=== PATIENT | female | born 1940 | race African-American/Black ===

== ENCOUNTER 2018-05-09 08:38 | Inpatient (IN) | payer OTHER ==
--- NOTE | 2018-05-09 09:19 | PDOC ---
History of Present Illness - General Chief Complaint: Shortness of Breath Stated Complaint: Shortness of Breath Time Seen by Provider: 05/09/18 09:00 History Source: Patient Exam Limitations: No Limitations - History of Present Illness Initial Comments: 05/09/18 09:15 Pt is a 78yo f with PMH of HTN BIBA from ED with complaints of SOB and wheezing that started this AM. Pt stated that she woke up this morning, went to the restroom. When she went to go lie back down when she had a sudden onset of wheezing and SOB. She never had this problem before. Pt states she had a few episodes of coughing up yellow phlegm when EMS arrived. Per EMS, BP was elevated and pt received 3 SL nitro and was placed on BiPAP. Pt denies chest pain, neck pain, back pain, headache, changes in vision, abdominal pain, n/v/d. Denies history of copd/asthma and PR. PCP: Beau PMH: HTN PSH: Meds: losartan Social: denies Allergies: nkda Past History - Past Medical History Allergies/Adverse Reactions: Allergies Allergy/AdvReac Type Severity Reaction Status Date / Time No Known Drug Allergies Allergy Verified 05/09/18 09:05 Home Medications: Ambulatory Orders Valsartan/Hydrochlorothiazide [Valsartan-Hctz 320-12.5 mg Tab] 1 each PO DAILY 02/12/15 Losartan Potassium 100 mg PO DAILY 05/09/18 Anemia: No Asthma: No Cancer: No Cardiac Disorders: No CVA: No COPD: No CHF: No Dementia: No Diabetes: No GI Disorders: No HTN: Yes Hypercholesterolemia: No Liver Disease: No Seizures: No Thyroid Disease: No - Surgical History Abdominal Surgery: Yes Appendectomy: No Cardiac Surgery: No Cholecystectomy: No Lung Surgery: No Neurologic Surgery: No Orthopedic Surgery: No - Suicide/Smoking/Psychosocial Hx Smoking History: Never smoked Have you smoked in the past 12 months: No Information on smoking cessation initiated: No Hx Alcohol Use: No Drug/Substance Use Hx: No Substance Use Type: None Review of Systems - Review of Systems Constitutional: No: Chills, Fever HEENTM: No: Recent change in vision, Double Vision Respiratory: Yes: Shortness of Breath, Wheezing, Productive cough. No: Orthopnea, Hemoptysis Cardiac (ROS): No: Chest Pain, Lightheadedness, Palpitations ABD/GI: No: Constipated, Diarrhea, Nausea, Rectal Bleeding, Vomiting, Abdominal cramping : No: Burning, Dysuria Musculoskeletal: No: Back Pain, Joint Pain, Muscle Pain, Neck Pain Neurological: No: Headache, Numbness, Tingling, Tremors *Physical Exam - Vital Signs Last Vital Signs Temp Pulse Resp BP Pulse Ox 97.4 F L 95 H 16 150/73 88 L 05/09/18 08:41 05/09/18 08:41 05/09/18 08:41 05/09/18 08:41 05/09/18 08:41 - Physical Exam General Appearance: Yes: Nourished, Appropriately Dressed, Mild Distress HEENT: positive: EOMI, HENNY, Pharynx Normal Neck: positive: Trachea midline, Supple. negative: Lymphadenopathy (R), Lymphadenopathy (L) Respiratory/Chest: positive: Wheezing. negative: Rapid RR Cardiovascular: positive: Regular Rhythm, Regular Rate, S1, S2. negative: Edema , JVD, Murmur Vascular Pulses: Carotid (R): 2+, Carotid (L): 2+, Dorsalis-Pedis (R): 2+, Doralis-Pedis (L): 2+ Gastrointestinal/Abdominal: positive: Normal Bowel Sounds, Soft. negative: Distended, Guarding, Rebound, Tenderness Musculoskeletal: negative: CVA Tenderness Extremity: positive: Normal Capillary Refill, Pedal Edema. negative: Swelling, Calf Tenderness Integumentary: positive: Normal Color, Dry, Warm Neurologic: positive: regional cra II-XII NML intact, Fully Oriented, Alert, Normal Mood/ Affect, Normal Response, Motor Strength /5 ED Treatment Course - LABORATORY CBC & Chemistry Diagram: 05/09/18 09:58 05/09/18 09:58 Medical Decision Making - Medical Decision Making 05/09/18 09:44 Pt is a 78yo f with PMH of HTN BIBA from ED with complaints of SOB and wheezing that started this AM. Per EMS, pt was hypertensive in 200s/100s. was given SL nitro x3 and placed on BiPAP. BP reduced to 170s/90s Vitals: hypoxia 88%. otherwise wnl PE: bilateral wheezing, no edema. DDx: CHF, PE, PNA, COPD/asthma Low suspicion for COPD/asthma given lack of history and lack of smoking. CHF and PE higher on differential. Ordered cbc, cmp, trop, vbg, coags, bnp, ekg, cxr. If normal, will order CTA ( pt admitted to bus ride to [place] in the summer). EKG: nsr, no DORITA or depressions, flattened T wave in aVL, no inversions. 05/09/18 10:48 CBC wnl. VBG shows elevated PCO2. poss COPD? Waiting for chemistries and cxr 05/09/18 11:03 chemistry: wnl Trop: elevated at .24 BNP elevated in 800s. poss chf? Started pt on Lasix 40mg CXR: edema? awaiting for read. pt feeling better. Labs showed elevated troponin and BNP. Will start admission process for chf. 05/09/18 12:41 Repeat bp 160/74, RR 18-24 saturating in mid 90s. Will place pt on BiPAP. Pt admitted to Dr. Brantley *DC/Admit/Observation/Transfer Diagnosis at time of Disposition: Hypoxemia CHF (congestive heart failure) Qualifiers: Heart failure type: unspecified Heart failure chronicity: acute Qualified Code( s): I50.9 - Heart failure, unspecified - Discharge Dispostion Condition at time of disposition: Stable Decision to Admit order: Yes - Referrals - Patient Instructions - Post Discharge Activity
[2018-05-09] MEDS ORDERED: ALBUTEROL SO4 2.5/IPRATROPIUM 0.5 INH SOL 3 ML VIAL.NEB. NEB ONE ×2 (09:29→10:17)
[2018-05-09] MEDS ORDERED: methylPREDNISolone NA SUCC 125 MG/2 ML VIAL IVPB ONE (09:29)
--- NOTE | 2018-05-09 10:12 | PDOC ---
Attending Attestation - Resident Resident Name: Sa Lexiira - ED Attending Attestation I have performed the following: I have examined & evaluated the patient, The case was reviewed & discussed with the resident, I agree w/resident's findings & plan, Exceptions are as noted - HPI HPI: 05/09/18 10:01 78 F with h/o HTN presents to ED with SOB. Pt states that her symptoms began yesterday while in [place]. She is a activities therapist and states that she felt something "in the back of her lungs" but denies any coughing or SOB at that time. Today, pt suddenly felt very SOB with chest tightness and wheezing. Denies h/o asthma/COPD. Not a smoker. Pt denies any leg swelling or pain but states that she took a bus to [place] a few months ago. En route to ED, pt was noted to have SBP 200s. Pt was given sublingual nitro and placed on Bipap, which she states helped significantly. - Physicial Exam PE: 05/09/18 10:12 "GENERAL: Awake, alert, and fully oriented, in no acute distress. HEAD: No signs of trauma EYES: PERRLA, EOMI, sclera anicteric, conjunctiva clear ENT: Auricles normal inspection, hearing grossly normal, nares patent, oropharynx clear without exudates. Moist mucosa NECK: Nontender, no stepoffs, Normal ROM, supple, no lymphadenopathy, JVD, or masses LUNGS: + expiratory wheezes HEART: Regular rate and rhythm, normal S1 and S2, no murmurs, rubs or gallops ABDOMEN: Soft, nontender, normoactive bowel sounds. No guarding, no rebound. No masses EXTREMITIES: Normal range of motion, no edema. No clubbing or cyanosis. No cords, erythema, or tenderness NEUROLOGICAL: Cranial nerves II through XII intact. 5/5 strength and sensation in all extremities, Normal speech, normal gait, normal cerebellar function SKIN: Warm, Dry, normal turgor, no rashes or lesions noted. - Critical Care Time Total Critical Care Time: 60 Critical Care Statement: The care of this patient involved high complexity decision making to prevent further life threatening deterioration of the patient 's condition and/or to evaluate & treat vital organ system(s) failure or risk of failure. - Medical Decision Making 05/09/18 10:13 78 F with SOB and hypoxia. Exam notable for wheezing, suggestive of reactive airway process. However, pt with no h/o asthma or COPD. Possible cardiac wheeze. Pt was hypertensive en route, so new onset CHF is possibility. Also consider PE, as pt took a long bus ride about 3 months ago. - labs, trop, BNP - CXR - Nebs, steroids - Consider CTPE 05/09/18 12:36 CXR wth pulmonary edema BNP elevated, trop 0.2 Likely new CHF Lasix given Pt admitted
[2018-05-09 10:14] LABS: VENOUS PC02 62.3 mmHg (38-52); VENOUS PH 7.28 (7.32-7.42); VENOUS PO2 22.8 mmHg (28-48)
[2018-05-09 10:15] LABS: BASO % 0.6 % (0-2.0); EOS % 0.8 % (0-4.5); HEMATOCRIT 34.2 % (32.4-45.2); HEMOGLOBIN 11.1 GM/dL (10.7-15.3); LYMPH % 22.3 % (8-40); MCH 28.4 pg (25.7-33.7); MCHC 32.6 g/dl (32.0-36.0); MEAN CELL VOLUME 87.2 fl (80-96); MEAN PLT VOLUME 9.6 fl (7.5-11.1); NEUT % 70.3 % (42.8-82.8); PLATELET COUNT 181 K/MM3 (134-434); RBC 3.92 M/mm3 (3.60-5.2); RDW 14.4 % (11.6-15.6); WHITE BLOOD COUNT 5.2 K/mm3 (4.0-10.0)
[2018-05-09] MEDS ORDERED: methylPREDNISolone NA SUCC 40 MG/1 ML VIAL ONE (10:16)
[2018-05-09 10:29] LABS: PROTHROMBIN TIME (PATIENT) 11.8 SEC (9.7-13.0)
[2018-05-09 10:31] LABS: ACTIVATED PTT 29.4 SECONDS (25.2-36.5)
[2018-05-09 10:50] LABS: ALBUMIN 3.6 g/dl (3.4-5.0); ALK PHOS 123 U/L (45-117); ANION GAP 7 MMOL/L (8-16); BILIRUBIN,TOTAL 0.4 mg/dL (0.2-1); BLOOD UREA NITROGEN 20 mg/dL (7-18); CALCIUM 8.5 mg/dL (8.5-10.1); CHLORIDE 105 mmol/L (98-107); CO2 25 mmol/L (21-32); CREATININE 0.8 mg/dL (0.55-1.3); GLUCOSE,RANDOM 142 mg/dL (74-106); MAGNESIUM 1.7 mg/dL (1.8-2.4); N-TERMINAL BNP 821.4 pg/ml (5-450); PHOSPHOROUS 3.6 mg/dL (2.5-4.9); POTASSIUM 3.9 mmol/L (3.5-5.1); SGOT/AST 49 U/L (15-37); SGPT/ALT 92 U/L (13-61); SODIUM 137 mmol/L (136-145); TOT PROT 7.6 g/dl (6.4-8.2)
[2018-05-09] MEDS ORDERED: FUROSEMIDE 40 MG/4 ML INJECTABLE VIAL IVPUSH ONE ×2 (10:54→14:24)
[2018-05-09] MEDS ORDERED: FUROSEMIDE 40 MG/4 ML INJECTABLE VIAL ONE ×2 (11:12→14:34)
--- NOTE | 2018-05-09 14:52 | CON.CARD ---
Consult Consult Specialty:: Cardiology Referred by:: Emergency Medicine Reason for Consultation:: Dyspnea - History of Present Illness Chief Complaint: Dyspnea History of Present Illness: 8 F with h/o HTN presents to ED with SOB, chest tightness, orthopnea and wheezing, noted to have SBP 200s. Pt was given sublingual nitro, diureticss and placed on Bipap, with improvement in symptoms. She denies palpitations, near or true syncope, PND or LE edema. - History Source History Provided By: Patient Limitations to Obtaining History: No Limitations - Past Medical History Cardio/Vascular: Yes: HTN - Alcohol/Substance Use Hx Alcohol Use: No - Smoking History Smoking history: Never smoked Have you smoked in the past 12 months: No Home Medications - Allergies Allergies/Adverse Reactions: Allergies Allergy/AdvReac Type Severity Reaction Status Date / Time No Known Drug Allergies Allergy Verified 05/09/18 09:05 - Home Medications Home Medications: Ambulatory Orders Valsartan/Hydrochlorothiazide [Valsartan-Hctz 320-12.5 mg Tab] 1 each PO DAILY 02/12/15 Losartan Potassium 100 mg PO DAILY 05/09/18 Family Disease History - Family Disease History Family History: Denies Vital Signs: Vital Signs Temperature 97.4 F L 05/09/18 08:41 Pulse Rate 66 05/09/18 14:30 Respiratory Rate 20 05/09/18 14:30 Blood Pressure 152/60 05/09/18 14:30 O2 Sat by Pulse Oximetry (%) 100 05/09/18 13:49 Constitutional: Yes: No Distress, Calm Neck: Yes: Supple Respiratory: Yes: Regular, Diminished, On Nasal O2 Gastrointestinal: Yes: Normal Bowel Sounds, Soft, Abdomen, Obese Cardiovascular: Yes: Regular Rate and Rhythm JVD: No Carotid Bruit: No Heart Sounds: Yes: S1, S2 Murmur: Yes: Systolic Murmur, Grade 1 Edema: Yes Edema: LLE: Trace, RLE: Trace - Other Data Labs, Other Data: CBC, BMP 05/09/18 09:58 05/09/18 09:58 INR, PTT INR 1.00 (0.83-1.09) 05/09/18 09:58 Troponin, BNP 05/09/18 09:58 Troponin I 0.24 H B-Natriuretic Peptide 821.4 H Troponin, BNP 05/09/18 09:58 Troponin I 0.24 H B-Natriuretic Peptide 821.4 H NSR @ [address]-T changes Ejection Fraction %: LVEF > or = 40 % Imaging - Results Chest X-ray: Report Reviewed (CHF, trace effusions) Cat Scan: Image Reviewed Problem List - Problems (1) Hypertensive hypertrophic cardiomyopathy, with heart failure Code(s): I11.0 - HYPERTENSIVE HEART DISEASE WITH HEART FAILURE; I42.2 - OTHER HYPERTROPHIC CARDIOMYOPATHY (2) CHF (congestive heart failure) Code(s): I50.9 - HEART FAILURE, UNSPECIFIED Qualifiers: Heart failure type: unspecified Heart failure chronicity: acute Qualified Code(s): I50.9 - Heart failure, unspecified (3) Acute on chronic respiratory failure with hypoxia and hypercapnia Code(s): J96.21 - ACUTE AND CHRONIC RESPIRATORY FAILURE WITH HYPOXIA; J96.22 - ACUTE AND CHRONIC RESPIRATORY FAILURE WITH HYPERCAPNIA (4) Subendocardial ischemia Code(s): I24.8 - OTHER FORMS OF ACUTE ISCHEMIC HEART DISEASE Assessment/Plan 1. Acute hypercapneic and hypoxemic respiratory failure 2. Acute on chronic diastolic heart failure 3. Hypertensive emergency 4. Subendocardial ischemia 5. Abnl LFTs suspect hepatic congestion P:1. IV diuresis with monitor diuretic response, renal function and electrolytes , replete Mg 2. Continue Diovan 329 qd, add carvedilol 6.25 bid, check TSH, lipid panel, Ha1c , trend LFTs 3. Echo to assess ventricular and valve fxn, f/u chest ct and abd U/S 4. Wean bipap and O2 as needed, DVT prophylaxis 5. Pharmacologic stress testing to r/o ischemia as outpatient once euvolemic 6. Thank you for consultative opportunity
[2018-05-09] MEDS ORDERED: MAGNESIUM OXIDE 400 MG TABLET (FP) PO ONE (14:58)
--- NOTE | 2018-05-09 15:32 | HP ---
CHIEF COMPLAINT: SOB PCP: Dr. Yanez HISTORY OF PRESENT ILLNESS: 78 y/o F with PMHx of HTN was BIBEMS for SOB. Part of the hx was provided by her son Efren at the bedside. For the past few days, the patients home heating system has not been functioning and her apartment has been very cold. Patient this morning woke up after feeling some wheezing, coughing and tightness in her throat. She ambulated to the restroom and afterwards still did not feel herself. She then tried rum in tea to help with her breathing which she did not tolerate and vomited. She continued to feel short of breath at which point EMS was called. This is the first time she has experienced an episode like this. She denies having decreased exercise tolerance, Increasing the amount of pillows used nightly. Patient has had the cough for a few days productive of green/yellow sputum. As per ED Notes, patients BP was elevated (~200s/100s) and she received 3 sublingual nitro's and on arrival in the ED, was placed on BiPAP. Additionally denies any hx of long travel, smoking hx or asthma hx. Denies any recent fevers, chills, chest pain, nausea, vomiting, diarrhea, constipation. ER course was notable for: (1) Solumederol, Lasix, Albuterol (2) (3) Recent Travel: Denies PAST MEDICAL HISTORY: HTN PAST SURGICAL HISTORY: Denies Social History: Smoking: Denies Alcohol: Occasional Drugs: Denies Family History: Allergies No Known Drug Allergies Allergy (Verified 05/09/18 09:05) HOME MEDICATIONS: Home Medications Medication Instructions Recorded Valsartan/Hydrochlorothiazide 1 each PO DAILY 02/12/15 [Valsartan-Hctz 320-12.5 mg Tab] REVIEW OF SYSTEMS As per HPI PHYSICAL EXAMINATION Vital Signs - 24 hr 05/09/18 05/09/18 05/09/18 08:41 11:35 12:57 Temperature 97.4 F L Pulse Rate 95 H 66 Pulse Rate [ 64 Apical] Respiratory 16 20 Rate Blood Pressure 150/73 Blood Pressure 176/61 H [Right Arm] O2 Sat by Pulse 88 L 99 100 Oximetry (%) 05/09/18 05/09/18 13:49 14:30 Temperature Pulse Rate Pulse Rate [ 66 Apical] Respiratory 20 Rate Blood Pressure Blood Pressure 152/60 [Right Arm] O2 Sat by Pulse 100 Oximetry (%) GENERAL: A&Ox3, NAD, lying with head of bed elevated, speaking in full sentences HEAD: NCAT EYES: PERRLA, EOMI EARS, NOSE, THROAT: Oropharynx clear without exudates. Moist mucous membranes. NECK: +JVD LUNGS: Bilateral decreased breath sounds, Right sided crackles at the bases, Currently on BIPAP HEART: Regular rate and rhythm, normal S1 and S2 without murmur ABDOMEN: Soft, nontender, not distended, + bowel sounds, no guarding MUSCULOSKELETAL: No CVA tenderness. EXTREMITIES: 2+ pulses, No calf tenderness. 1+ pitting edema. NEUROLOGICAL: Cranial nerves II-XII intact. Normal speech. C5-T1 and L4-S1 Gross sensation intact. 5/5 muscle strength to Hand special education secretary, Elbow flexion/ extension, Shoulder abduction, Hip flexion, Plantarflexion, Dorsiflexion. SKIN: Warm, dry, no rashes or lesions noted, normal capillary refill. Laboratory Results - last 24 hr 05/09/18 05/09/18 05/09/18 09:58 09:58 09:58 WBC 5.2 RBC 3.92 Hgb 11.1 Hct 34.2 MCV 87.2 MCH 28.4 MCHC 32.6 RDW 14.4 Plt Count 181 MPV 9.6 Absolute Neuts (auto) 3.7 Neutrophils % 70.3 D Lymphocytes % 22.3 D Monocytes % 6.0 Eosinophils % 0.8 Basophils % 0.6 Nucleated RBC % 0 PT with INR 11.80 INR 1.00 PTT (Actin FS) 29.4 VBG pH POC VBG pCO2 POC VBG pO2 Mixed VBG HCO3 Sodium 137 Potassium 3.9 Chloride 105 Carbon Dioxide 25 Anion Gap 7 L BUN 20 H Creatinine 0.8 Creat Clearance w eGFR > 60 Random Glucose 142 H Calcium 8.5 Phosphorus 3.6 Magnesium 1.7 L Total Bilirubin 0.4 AST 49 H ALT 92 H Alkaline Phosphatase 123 H Troponin I 0.24 H B-Natriuretic Peptide 821.4 H Total Protein 7.6 Albumin 3.6 Urine Color Urine Appearance Urine pH Ur Specific [place] Urine Protein Urine Glucose (UA) Urine Ketones Urine Blood Urine Nitrite Urine Bilirubin Urine Urobilinogen Ur Leukocyte Esterase 05/09/18 05/09/18 09:58 11:01 WBC RBC Hgb Hct MCV MCH MCHC RDW Plt Count MPV Absolute Neuts (auto) Neutrophils % Lymphocytes % Monocytes % Eosinophils % Basophils % Nucleated RBC % PT with INR INR PTT (Actin FS) VBG pH 7.28 L POC VBG pCO2 62.3 H* POC VBG pO2 22.8 L Mixed VBG HCO3 28.0 H Sodium Potassium Chloride Carbon Dioxide Anion Gap BUN Creatinine Creat Clearance w eGFR Random Glucose Calcium Phosphorus Magnesium Total Bilirubin AST ALT Alkaline Phosphatase Troponin I B-Natriuretic Peptide Total Protein Albumin Urine Color Cancelled Urine Appearance Cancelled Urine pH Cancelled Ur Specific [place] Cancelled Urine Protein Cancelled Urine Glucose (UA) Cancelled Urine Ketones Cancelled Urine Blood Cancelled Urine Nitrite Cancelled Urine Bilirubin Cancelled Urine Urobilinogen Cancelled Ur Leukocyte Esterase Cancelled IMAGING: -CXR: No evidence of widening of the superior mediastinum. The heart is borderline enlarged. No pneumothorax is seen. Increased lung markings are noted in the region of the right cardiophrenic angle without effacement of heart border or diaphragm. Infectious process cannot be entirely excluded. Questionable right pleural effusion. ASSESSMENT/PLAN: 78 y/o F with PMHx of HTN was BIBEMS for SOB and will be admitted to tele. 1. SOB -Likely due to Acute CHF exacerbation VS PNA -JVD+, 1+ Pitting Edema, Right sided crackles, BNP 821.4 -IV Lasix 40 BID -Cardiology (Dr. Gray) consulted, Appreciate Rec's -CT Chest without contrast -Echo ordered -Repeat ABG Stat -Legionella/Strep Urine Antigen -Flu Swab -No indication for ABx at this time -Daily weights, Strict I&Os -Continue BIPAP 2. Hypertensive Urgency -Cardiology (Dr. Gray) consulted, Appreciate Rec's -Will Check TSH -Continue Coreg, Lasix BID, Valsartan -Can consider Nitrates if HTN persists 3. Troponemia -Likely due to demand ischemia -Will follow up with repeat Trops -Serial EKG 4. Transaminitis -Likely due to congestion -Will Check Hepatitis panel, Hepatic function panel, PT/INR 5. HypoMagnesemia -Repleted -Will continue to monitor 6. FEN -PO Fluids -Monitor for Hypomag -Sodium Controlled Diet 7. PPx -DVT: Lovenox daily Dispo: Tele-Inpatient Visit type - Emergency Visit Emergency Visit: Yes ED Registration Date: 05/09/18 Care time: The patient presented to the Emergency Department on the above date and was hospitalized for further evaluation of their emergent condition. - New Patient This patient is new to me today: Yes Date on this admission: 05/09/18 - Critical Care Critical Care patient: No
--- NOTE | 2018-05-09 15:58 | PN ---
Teaching Attending Note Name of Resident: Margarette Reyes ATTENDING PHYSICIAN STATEMENT I saw and evaluated the patient. I reviewed the resident's note and discussed the case with the resident. I agree with the resident's findings and plan as documented with exceptions below. SUBJECTIVE: 78 yof with PMhx of HTN, admitted with 4-5 days of shortness of breath.Patient reports no heating in house last few days and has been sleeping in the cold. Today felt was unable to breathe associated with chest tightness, so came to ED. Denies any fevers, chills, sputum, sick contacts, orthopnea, PND, leg swelling, arm or jaw pain. Took bus to [place] recently. Currently has been urinating a lot after treatment in the ED and feels better. 12 point ROS done, neg except above. OBJECTIVE: Vital Signs Period Temp Pulse Resp BP Sys/Granda Pulse Ox Last 24 Hr 97.4 F 64-95 16-20 150-176/60-73 88-100 Intake & Output 05/06/18 05/07/18 05/08/18 05/09/18 23:59 23:59 23:59 23:59 Weight 180 lb GENERAL: Awake, alert,on Bipap, but able to converse, mild use of accessory muscles of respiration. HEAD: Normal with no signs of trauma. EYES: Pupils equal, round and reactive to light, extraocular movements intact, sclera anicteric, conjunctiva clear. No lid lag. EARS, NOSE, THROAT: Ears normal, nares patent, oropharynx clear without exudates. Moist mucous membranes. NECK: Soft, supple, neck vein distension noted LUNGS: decreased breath sounds all over, scattered wheezing HEART: S1S2 regular rate rhythm, further exam limited by adventitious breath sounds ABDOMEN: Soft, obese, NT throughout, positive bowel sounds, no voluntary or involuntary guarding or rigidity MUSCULOSKELETAL: Normal range of motion at all joints. No bony deformities or tenderness. No CVA tenderness. UPPER EXTREMITIES: 2+ pulses, warm, well-perfused. No cyanosis. No clubbing. No peripheral edema. LOWER EXTREMITIES: 2+ pulses, warm, well-perfused. No calf tenderness. No peripheral edema. NEUROLOGICAL: Cranial nerves II-XII intact. Normal speech. moves all extremities freely, facial symmetry PSYCHIATRIC: Cooperative. Good eye contact. Appropriate mood and affect. SKIN: Warm, dry, normal turgor, no rashes or lesions noted, normal capillary refill. Home Medications Medication Instructions Recorded Valsartan/Hydrochlorothiazide 1 each PO DAILY 02/12/15 [Valsartan-Hctz 320-12.5 mg Tab] Active Medications Carvedilol (Coreg -) 6.25 mg PO BID [facility] Enoxaparin Sodium (Lovenox -) 40 mg SQ DAILY [facility] Furosemide (Lasix Injection -) 40 mg IVPUSH BID@0600,1400 [facility] Valsartan (Diovan -) 320 mg PO DAILY [facility] Laboratory Results - last 24 hr 05/09/18 05/09/18 05/09/18 09:58 09:58 09:58 WBC 5.2 RBC 3.92 Hgb 11.1 Hct 34.2 MCV 87.2 MCH 28.4 MCHC 32.6 RDW 14.4 Plt Count 181 MPV 9.6 Absolute Neuts (auto) 3.7 Neutrophils % 70.3 D Lymphocytes % 22.3 D Monocytes % 6.0 Eosinophils % 0.8 Basophils % 0.6 Nucleated RBC % 0 PT with INR 11.80 INR 1.00 PTT (Actin FS) 29.4 VBG pH POC VBG pCO2 POC VBG pO2 Mixed VBG HCO3 Sodium 137 Potassium 3.9 Chloride 105 Carbon Dioxide 25 Anion Gap 7 L BUN 20 H Creatinine 0.8 Creat Clearance w eGFR > 60 Random Glucose 142 H Calcium 8.5 Phosphorus 3.6 Magnesium 1.7 L Total Bilirubin 0.4 AST 49 H ALT 92 H Alkaline Phosphatase 123 H Troponin I 0.24 H B-Natriuretic Peptide 821.4 H Total Protein 7.6 Albumin 3.6 Urine Color Urine Appearance Urine pH Ur Specific [place] Urine Protein Urine Glucose (UA) Urine Ketones Urine Blood Urine Nitrite Urine Bilirubin Urine Urobilinogen Ur Leukocyte Esterase 05/09/18 05/09/18 09:58 11:01 WBC RBC Hgb Hct MCV MCH MCHC RDW Plt Count MPV Absolute Neuts (auto) Neutrophils % Lymphocytes % Monocytes % Eosinophils % Basophils % Nucleated RBC % PT with INR INR PTT (Actin FS) VBG pH 7.28 L POC VBG pCO2 62.3 H* POC VBG pO2 22.8 L Mixed VBG HCO3 28.0 H Sodium Potassium Chloride Carbon Dioxide Anion Gap BUN Creatinine Creat Clearance w eGFR Random Glucose Calcium Phosphorus Magnesium Total Bilirubin AST ALT Alkaline Phosphatase Troponin I B-Natriuretic Peptide Total Protein Albumin Urine Color Cancelled Urine Appearance Cancelled Urine pH Cancelled Ur Specific [place] Cancelled Urine Protein Cancelled Urine Glucose (UA) Cancelled Urine Ketones Cancelled Urine Blood Cancelled Urine Nitrite Cancelled Urine Bilirubin Cancelled Urine Urobilinogen Cancelled Ur Leukocyte Esterase Cancelled CXR - interstitial markings consistent with CHF EKG NSR 61, no acute ST-T changes CT chest results pending ASSESSMENT AND PLAN: 78 yof with PMHx of HTN, admitted with dyspnea -Acute hypoxic/hypercapneic respiratory failure, likely acute diastolic heart failure exacerbation from uncontrolled HTn, r/o infectious etiology, unlikely PE given current presentation, CXR and improvement with diuresis -Acute CHF, likely diastolic Heart failure exacerbation -Hypertensive urgency -Elevated Troponin I, suspect demand induced from above -Abnormal LFTs, ?passive hepatic congestion -Obesity Plan: responded well to IV lasix. Additional Lasix 40 mg IV x1. Strict I/Os, daily weights. Bipap, repeat ABG, anticipate will be able to taper off over next few hours if continues to diurese. Resume valsartan. Cardiology input noted. Started on coreg. BP improved with improved breathing and diuresis. Will consider nitrates if recurrent hypertension. Check 2D echo Telemetry, cycle troponins. Check lipid panel/A1c/TSH. CT chest. Hold off on abx for now. Flu swab and urine PNA studies. DVTPX heparin Dispo pending clinical improvement. Admit to inpatient telemetry. Plan discussed with patient and son at bedside in detail, all questions answered.
[2018-05-09] MEDS ORDERED: CARVEDILOL 3.125 MG TABLET (FP) ONE (15:59)
[2018-05-09] MEDS ORDERED: MAGNESIUM OXIDE 400 MG TABLET (FP) ONE (16:03)
[2018-05-09] MEDS: CARVEDILOL 6.25 MG TABLET (FP) PO SCH ×2 (17:43→21:18)
--- NOTE | 2018-05-09 21:24 | EKG ---
Test Reason : Blood Pressure : / mmHG Vent. Rate : 061 BPM Atrial Rate : 061 BPM P-R Int : 152 ms QRS Dur : 080 ms QT Int : 464 ms P-R-T Axes : 059 028 045 degrees QTc Int : 467 ms NORMAL SINUS RHYTHM NORMAL ECG WHEN COMPARED WITH ECG OF 23-AUG-2015 12:01, NO SIGNIFICANT CHANGE WAS FOUND Confirmed by TORREY PRESTON MD ([id number]) on 05/09/2018 9:24:25 PM Referred By: Confirmed By:TORREY PRESTON MD
[2018-05-10] MEDS: FUROSEMIDE 40 MG/4 ML INJECTABLE VIAL IVPUSH SCH ×2 (06:14→15:15)
[2018-05-10 06:47] LABS: INR 1.1 (0.83-1.09)
[2018-05-10 06:50] LABS: BASO % 0.2 % (0-2.0); HEMATOCRIT 36.7 % (32.4-45.2); HEMOGLOBIN 11.7 GM/dL (10.7-15.3); LYMPH % 16.9 % (8-40); MCH 27.6 pg (25.7-33.7); MCHC 31.9 g/dl (32.0-36.0); MEAN CELL VOLUME 86.6 fl (80-96); MEAN PLT VOLUME 10.1 fl (7.5-11.1); MONO % 6.7 % (3.8-10.2); NEUT % 76.2 % (42.8-82.8); PLATELET COUNT 209 K/MM3 (134-434); RBC 4.24 M/mm3 (3.60-5.2); RDW 14.8 % (11.6-15.6); WHITE BLOOD COUNT 8.5 K/mm3 (4.0-10.0)
[2018-05-10 07:33] LABS: ALBUMIN 3.7 g/dl (3.4-5.0); ALK PHOS 91 U/L (45-117); ANION GAP 9 MMOL/L (8-16); BILIRUBIN,DIRECT 0.1 mg/dL (0.0-0.2); BILIRUBIN,TOTAL 0.4 mg/dL (0.2-1); BLOOD UREA NITROGEN 22 mg/dL (7-18); CALCIUM 8.9 mg/dL (8.5-10.1); CHLORIDE 104 mmol/L (98-107); CHOLESTEROL 237 mg/dL (50-200); CO2 28 mmol/L (21-32); GLUCOSE,RANDOM 98 mg/dL (74-106); HDL CHOLESTEROL 107 mg/dL (40-60); PHOSPHOROUS 3.9 mg/dL (2.5-4.9); SGOT/AST 33 U/L (15-37); SGPT/ALT 80 U/L (13-61); SODIUM 140 mmol/L (136-145); TRIGLYCERIDES 39 mg/dL (0-150)
--- NOTE | 2018-05-10 07:50 | PN ---
Progress Note (short form) - Note Progress Note: Chief Complaint: Events noted, notes reviewed, dyspnea continues to improve, denies any chest pain History of Present Illness: Seen and examined on telemetry. Events noted, notes reviewed, dyspnea continues to improve, denies any chest pain Medications: Current Medications Carvedilol (Coreg -) 6.25 mg PO BID [facility] Last Admin: 05/09/18 21:18 Dose: 6.25 mg Enoxaparin Sodium (Lovenox -) 40 mg SQ DAILY [facility] Furosemide (Lasix Injection -) 40 mg IVPUSH BID@0600,1400 [facility] Last Admin: 05/10/18 06:14 Dose: 40 mg Valsartan (Diovan -) 320 mg PO DAILY [facility] Review of Systems - Review of Systems Constitutional: no symptoms reported Respiratory: denies Cough Cardiovascular: as noted above Gastrointestinal: denies Nausea, Vomiting, Diarrhea, Constipation or Abdominal Pain Genitourinary: no symptoms reported Musculoskeletal: no symptoms reported Endocrine: no symptoms reported Vital Signs: Last Vital Signs Temp Pulse Resp BP Pulse Ox 97.8 F 60 18 127/55 L 100 05/10/18 05:00 05/10/18 05:00 05/10/18 05:00 05/10/18 05:00 05/09/18 21:00 Intake & Output 05/07/18 05/08/18 05/09/18 05/10/18 23:59 23:59 23:59 23:59 Intake Total 310 0 Balance 310 0 Weight 180 lb 182 lb 12.8 oz Neck: Supple Negative JVD Respiratory: Diminished Breath Sounds Bilaterally Cardiovascular: S1 S2 Regular Rate and Rhythm Gastrointestinal: Soft Benign Normal Bowel Sounds Ext: Negative Edema Labs: CBC, BMP 05/10/18 05:30 05/10/18 05:30 Hepatic Panel Total Bilirubin 0.4 mg/dL (0.2-1) 05/10/18 05:30 Direct Bilirubin 0.1 mg/dL (0.0-0.2) 05/10/18 05:30 AST 33 U/L (15-37) 05/10/18 05:30 ALT 80 U/L (13-61) H 05/10/18 05:30 Alkaline Phosphatase 91 U/L (45-117) 05/10/18 05:30 Albumin 3.7 g/dl (3.4-5.0) 05/10/18 05:30 Assessment/Plan ASSESSMENT: 1. Acute hypercapneic and hypoxemic respiratory failure, resolved related to 2. Acute on chronic class II NYHA classification diastolic LV failure, resolving 3. CAD angina pectoris with evidence of demand ischemic injury 4. Hypertensive emergency 5. Abnormal LFTs suspect hepatic congestion 6. CKD PLAN: 1. Continue Coreg 2. Continue Diovan 3. Continue Lasix IV for an additional 24 hours 4. Echocardiography to assess ventricular and valve function 5. Pharmacologic stress testing to evaluate ischemia burden as outpatient once euvolemic, discussed in detail wit the patient Raul Ramirez M.D.
--- NOTE | 2018-05-10 09:02 | PN ---
Teaching Attending Note Name of Resident: Margarette Reyes ATTENDING PHYSICIAN STATEMENT I saw and evaluated the patient. I reviewed the resident's note and discussed the case with the resident. I agree with the resident's findings and plan as documented with exceptions below. SUBJECTIVE: Patient seen and examined. Breathing improved. No chest pain, headache or new concerns. OBJECTIVE: Vital Signs Period Temp Pulse Resp BP Sys/Granda Pulse Ox Last 24 Hr 97.8 F-98.6 F 60-78 18-20 127-182/55-90 96-100 Intake & Output 05/07/18 05/08/18 05/09/18 05/10/18 23:59 23:59 23:59 23:59 Intake Total 310 0 Balance 310 0 Weight 180 lb 182 lb 12.8 oz General: sitting in bed, markedly improved, no tachypnea or use of accessory muscles of respiration Neck: soft, supple, no JVD visualized CVS: S1s2 regular Chest: improved air entry, few basilar rales, markedly improved exam Abdomen: soft, obese, NT Extremities: trace pedal edema Home Medications Medication Instructions Recorded Valsartan/Hydrochlorothiazide 1 each PO DAILY 02/12/15 [Valsartan-Hctz 320-12.5 mg Tab] Losartan Potassium 100 mg PO DAILY 05/09/18 Active Medications Atorvastatin Calcium (Lipitor -) 40 mg PO HS [facility] Carvedilol (Coreg -) 6.25 mg PO BID [facility] Last Admin: 05/09/18 21:18 Dose: 6.25 mg Enoxaparin Sodium (Lovenox -) 40 mg SQ DAILY [facility] Furosemide (Lasix Injection -) 40 mg IVPUSH BID@0600,1400 [facility] Last Admin: 05/10/18 06:14 Dose: 40 mg Insulin Aspart (Novolog Vial Sliding Scale -) 1 vial SQ ACHS [facility]; Protocol Valsartan (Diovan -) 320 mg PO DAILY [facility] Laboratory Results - last 24 hr 05/09/18 05/09/18 05/09/18 09:58 09:58 09:58 WBC 5.2 RBC 3.92 Hgb 11.1 Hct 34.2 MCV 87.2 MCH 28.4 MCHC 32.6 RDW 14.4 Plt Count 181 MPV 9.6 Absolute Neuts (auto) 3.7 Neutrophils % 70.3 D Lymphocytes % 22.3 D Monocytes % 6.0 Eosinophils % 0.8 Basophils % 0.6 Nucleated RBC % 0 PT with INR 11.80 INR 1.00 PTT (Actin FS) 29.4 VBG pH POC VBG pCO2 POC VBG pO2 Mixed VBG HCO3 Sodium 137 Potassium 3.9 Chloride 105 Carbon Dioxide 25 Anion Gap 7 L BUN 20 H Creatinine 0.8 Creat Clearance w eGFR > 60 Random Glucose 142 H Hemoglobin A1c % Calcium 8.5 Phosphorus 3.6 Magnesium 1.7 L Total Bilirubin 0.4 Direct Bilirubin AST 49 H ALT 92 H Alkaline Phosphatase 123 H Creatine Kinase Creatine Kinase Index CK-MB (CK-2) Troponin I 0.24 H B-Natriuretic Peptide 821.4 H Total Protein 7.6 Albumin 3.6 Triglycerides Cholesterol Total LDL Cholesterol HDL Cholesterol TSH Urine Color Urine Appearance Urine pH Ur Specific Colbert Urine Protein Urine Glucose (UA) Urine Ketones Urine Blood Urine Nitrite Urine Bilirubin Urine Urobilinogen Ur Leukocyte Esterase 05/09/18 05/09/18 05/09/18 09:58 11:01 16:30 WBC RBC Hgb Hct MCV MCH MCHC RDW Plt Count MPV Absolute Neuts (auto) Neutrophils % Lymphocytes % Monocytes % Eosinophils % Basophils % Nucleated RBC % PT with INR INR PTT (Actin FS) VBG pH 7.28 L POC VBG pCO2 62.3 H* POC VBG pO2 22.8 L Mixed VBG HCO3 28.0 H Sodium Potassium Chloride Carbon Dioxide Anion Gap BUN Creatinine Creat Clearance w eGFR Random Glucose Hemoglobin A1c % Calcium Phosphorus Magnesium Total Bilirubin Direct Bilirubin AST ALT Alkaline Phosphatase Creatine Kinase Creatine Kinase Index CK-MB (CK-2) Troponin I 0.43 H B-Natriuretic Peptide Total Protein Albumin Triglycerides Cholesterol Total LDL Cholesterol HDL Cholesterol TSH Urine Color Cancelled Urine Appearance Cancelled Urine pH Cancelled Ur Specific Colbert Cancelled Urine Protein Cancelled Urine Glucose (UA) Cancelled Urine Ketones Cancelled Urine Blood Cancelled Urine Nitrite Cancelled Urine Bilirubin Cancelled Urine Urobilinogen Cancelled Ur Leukocyte Esterase Cancelled 05/10/18 05/10/18 05/10/18 05:30 05:30 05:30 WBC 8.5 RBC 4.24 Hgb 11.7 Hct 36.7 MCV 86.6 MCH 27.6 MCHC 31.9 L RDW 14.8 Plt Count 209 MPV 10.1 Absolute Neuts (auto) 6.5 Neutrophils % 76.2 Lymphocytes % 16.9 D Monocytes % 6.7 Eosinophils % 0.0 D Basophils % 0.2 Nucleated RBC % 0 PT with INR INR PTT (Actin FS) VBG pH POC VBG pCO2 POC VBG pO2 Mixed VBG HCO3 Sodium 140 Potassium 4.0 Chloride 104 Carbon Dioxide 28 Anion Gap 9 BUN 22 H Creatinine 1.0 Creat Clearance w eGFR 53.48 Random Glucose 98 Hemoglobin A1c % 6.9 H Calcium 8.9 Phosphorus 3.9 Magnesium 2.0 Total Bilirubin 0.4 Direct Bilirubin 0.1 AST 33 ALT 80 H Alkaline Phosphatase 91 Creatine Kinase 370 H Creatine Kinase Index 1.4 CK-MB (CK-2) 5.5 H Troponin I 0.41 H B-Natriuretic Peptide Total Protein 8.0 Albumin 3.7 Triglycerides 39 Cholesterol 237 H Total LDL Cholesterol 121 H HDL Cholesterol 107 H TSH 1.28 Urine Color Urine Appearance Urine pH Ur Specific Colbert Urine Protein Urine Glucose (UA) Urine Ketones Urine Blood Urine Nitrite Urine Bilirubin Urine Urobilinogen Ur Leukocyte Esterase 05/10/18 05:30 WBC RBC Hgb Hct MCV MCH MCHC RDW Plt Count MPV Absolute Neuts (auto) Neutrophils % Lymphocytes % Monocytes % Eosinophils % Basophils % Nucleated RBC % PT with INR 13.00 INR 1.10 H PTT (Actin FS) VBG pH POC VBG pCO2 POC VBG pO2 Mixed VBG HCO3 Sodium Potassium Chloride Carbon Dioxide Anion Gap BUN Creatinine Creat Clearance w eGFR Random Glucose Hemoglobin A1c % Calcium Phosphorus Magnesium Total Bilirubin Direct Bilirubin AST ALT Alkaline Phosphatase Creatine Kinase Creatine Kinase Index CK-MB (CK-2) Troponin I B-Natriuretic Peptide Total Protein Albumin Triglycerides Cholesterol Total LDL Cholesterol HDL Cholesterol TSH Urine Color Urine Appearance Urine pH Ur Specific Colbert Urine Protein Urine Glucose (UA) Urine Ketones Urine Blood Urine Nitrite Urine Bilirubin Urine Urobilinogen Ur Leukocyte Esterase CT images reviewed, result pending Telemetry: ASSESSMENT AND PLAN: 78 yof with PMHx of HTN, admitted with dyspnea -Acute hypoxic/hypercapneic respiratory failure, likely acute diastolic +/- systolic heart failure exacerbation -Hypertensive urgency -Elevated Troponin I, suspect demand induced from above -Abnormal LFTs, likely passive hepatic congestion, improved -Hyperlipidemia -Newly diagnosed DM -Obesity Plan: Continue IV lasix for additional 24 hours with strict I/Os, daily weights. Cardiology input noted, follow up 2D echo. Continue valsartan. Coreg added. Bipap prn. Will need stress test once volume status improved, likely in 24-[address] chest noted. Hold off on abx for now. BP improved. Lipid panel noted, start lipitor 40 mg hs, trend LFTs. A1c 6.9, dietary consult, place on BGM/ISS. DVTPX heparin Dispo pending clinical improvement. Plan discussed with patient in detail, all questions answered.
[2018-05-10] MEDS ORDERED: FLU VACCINE QUAD 60 MCG/0.5 ML (MDV 18-19) IM ONE (09:56)
[2018-05-10] MEDS: ENOXAPARIN NA (PORCINE) 40 MG/0.4 ML DISP.SYRIN SQ SCH (11:09)
[2018-05-10] MEDS: CARVEDILOL 6.25 MG TABLET (FP) PO SCH ×2 (11:09→22:53)
[2018-05-10] MEDS: VALSARTAN 160 MG TABLET (UD) PO SCH (11:09)
[2018-05-10] MEDS: INSULIN SLIDING SCALE (NOVOLOG) 1 VIAL SQ SCH ×3 (11:45→22:57)
--- NOTE | 2018-05-10 12:52 | EKG ---
Test Reason : Blood Pressure : / mmHG Vent. Rate : 075 BPM Atrial Rate : 075 BPM P-R Int : 154 ms QRS Dur : 076 ms QT Int : 434 ms P-R-T Axes : 066 024 041 degrees QTc Int : 484 ms NORMAL SINUS RHYTHM NORMAL ECG Confirmed by MD JESSICA, PEDRO ([id number]) on 05/10/2018 12:52:13 PM Referred By: Confirmed By:PEDRO LOPEZ MD
--- NOTE | 2018-05-10 17:31 | ECHO ---
Name: JAN SWIFT Exam:Adult Echocardiogram Study Date: 05/10/2018 10:57 AM Age: 78 yrs Reason For Study: CHF Height: 62 in Weight: 180 lb BSA: 1.8 m2 MMode/2D Measurements & Calculations IVSd: 0.87 cm Ao root diam: 2.4 cm LVIDd: 4.4 cm LA dimension: 3.4 cm LVIDs: 3.2 cm LVPWd: 0.92 cm EDV(Teich): 88.2 ml TAPSE: 3.4 cm ESV(Teich): 39.4 ml Doppler Measurements & Calculations MV E max chip: 65.2 cm/sec TR max chip: 264.0 cm/sec MV A max chip: 82.9 cm/sec TR max P.1 mmHg MV E/A: 0.79 Med Peak E' Chip: 3.8 cm/sec Med E/e': 17.1 Lat Peak E' Chip: 4.5 cm/sec Lat E/e': 14.5 Procedure A complete two-dimensional transthoracic echocardiogram was performed (2D, M-mode, Doppler and color flow Doppler). Left Ventricle The left ventricular size, thickness and function are normal. Ejection Fraction = 70%. The transmitra l spectral Doppler flow pattern is suggestive of impaired LV relaxation. Right Ventricle The right ventricle is normal in size and function. Atria Normal left and right atrial size and function. Mitral Valve There is mild mitral annular calcification. There is trace mitral regurgitation. Tricuspid Valve The tricuspid valve is not well visualized, but is grossly normal. There is trace tricuspid regurgita tion. Right ventricular systolic pressure is 25 mmhg. Aortic Valve There is mild aortic sclerosis.;. Interpretation Summary The left ventricular size, thickness and function are normal Ejection Fraction = 70%. There is mild mitral annular calcification. There is trace mitral regurgitation. There is trace tricuspid regurgitation. Right ventricular systolic pressure is 25 mmhg. There is mild aortic sclerosis.; MD Troy Paige 05/10/2018 05:31 PM
[2018-05-10 19:05] VITALS: BMI 33.3
--- NOTE | 2018-05-10 19:15 | PN ---
Physical Exam: SUBJECTIVE: Patient seen and examined this morning at bedside. No New complaints ; Believes her breathing has improved. No longer using Bipap, and able to ambulate to the restroom without supplemental O2 via NC. Denies fevers, chills, chest pain, SOB, nausea, vomiting, diarrhea, constipation. OBJECTIVE: Vital Signs Period Temp Pulse Resp BP Sys/Granda Pulse Ox Last 24 Hr 97.8 F-98.6 F 55-73 18-20 97-171/55-75 100-100 Intake & Output 05/10/18 05/10/18 05/10/18 07:59 15:59 23:59 Intake Total 0 480 Output Total 800 Balance 0 -320 Weight 82.917 kg 82.554 kg GENERAL: A&Ox3, NAD, lying with head of bed elevated, speaking in full sentences HEAD: NCAT EYES: PERRLA, EOMI EARS, NOSE, THROAT: Oropharynx clear without exudates. Moist mucous membranes. NECK: No JVD LUNGS: Bibasilar rales, on 3L via NC HEART: Regular rate and rhythm, normal S1 and S2 without murmur ABDOMEN: Soft, nontender, not distended, + bowel sounds, no guarding EXTREMITIES: 2+ pulses, No calf tenderness. Trace pitting edema. NEUROLOGICAL: Cranial nerves II-XII intact. Normal speech. C5-T1 and L4-S1 Gross sensation intact. 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 SKIN: Warm, dry, no rashes or lesions noted Laboratory Results - last 24 hr 05/10/18 05/10/18 05/10/18 05:30 05:30 05:30 WBC 8.5 RBC 4.24 Hgb 11.7 Hct 36.7 MCV 86.6 MCH 27.6 MCHC 31.9 L RDW 14.8 Plt Count 209 MPV 10.1 Absolute Neuts (auto) 6.5 Neutrophils % 76.2 Lymphocytes % 16.9 D Monocytes % 6.7 Eosinophils % 0.0 D Basophils % 0.2 Nucleated RBC % 0 PT with INR INR Sodium 140 Potassium 4.0 Chloride 104 Carbon Dioxide 28 Anion Gap 9 BUN 22 H Creatinine 1.0 Creat Clearance w eGFR 53.48 POC Glucometer Random Glucose 98 Hemoglobin A1c % 6.9 H Calcium 8.9 Phosphorus 3.9 Magnesium 2.0 Total Bilirubin 0.4 Direct Bilirubin 0.1 AST 33 ALT 80 H Alkaline Phosphatase 91 Creatine Kinase 370 H Creatine Kinase Index 1.4 CK-MB (CK-2) 5.5 H Troponin I 0.41 H Total Protein 8.0 Albumin 3.7 Triglycerides 39 Cholesterol 237 H Total LDL Cholesterol 121 H HDL Cholesterol 107 H TSH 1.28 Active Medications Atorvastatin Calcium (Lipitor -) 40 mg PO HS [facility] Carvedilol (Coreg -) 6.25 mg PO BID [facility] Last Admin: 05/10/18 11:09 Dose: 6.25 mg Enoxaparin Sodium (Lovenox -) 40 mg SQ DAILY [facility] Last Admin: 05/10/18 11:09 Dose: 40 mg Furosemide (Lasix Injection -) 40 mg IVPUSH BID@0600,1400 [facility] Last Admin: 05/10/18 15:15 Dose: 40 mg Insulin Aspart (Novolog Vial Sliding Scale -) 1 vial SQ [facility]; Protocol Last Admin: 05/10/18 16:30 Dose: Not Given Valsartan (Diovan -) 320 mg PO DAILY [facility] Last Admin: 05/10/18 11:09 Dose: 320 mg IMAGING: -CXR: No evidence of widening of the superior mediastinum. The heart is borderline enlarged. No pneumothorax is seen. Increased lung markings are noted in the region of the right cardiophrenic angle without effacement of heart border or diaphragm. Infectious process cannot be entirely excluded. Questionable right pleural effusion. -Chest CT without Contrast: Small bilateral pleural effusions, chronic lung changes and mild bibasilar atelectasis. No evidence of pneumonia or acute pathology within the chest. -EKG (on 05/09 @ 09:28): NORMAL SINUS RHYTHM, NORMAL ECG, VR 61, QTc 467 -EKG (on 05/09 @ 19:48): NORMAL SINUS RHYTHM, NORMAL ECG, VR 75, QTc 484 -ECHO: LV Size, thickness and function are normal. EF = 70%, Trace MR and TR. ASSESSMENT/PLAN: 78 y/o F with PMHx of HTN was BIBEMS for SOB and will be admitted to [facility]. 1. SOB -Likely due to Acute CHF exacerbation -JVD+, 1+ Pitting Edema, Right sided crackles, BNP 821.4 -IV Lasix 40 BID for additional 24 hours -Continue Coreg, Valsartan -Cardiology (Dr. Gray) consulted, Appreciate Rec's, Continue Coreg, Diovan. Continue Lasix for additional 24 hours -Chest CT without Contrast: No evidence of pneumonia or acute pathology within the chest. -ECHO: LV Size, thickness and function are normal. EF = 70%, Trace MR and TR. -Repeat ABG Stat -No indication for ABx at this time -Daily weights, Strict I&Os -BIPAP PRN 2. Hypertensive Urgency -Cardiology (Dr. Gray) consulted, Appreciate Rec's -Will Check TSH -Continue Coreg, Lasix BID, Valsartan -Can consider Nitrates if HTN persists 3. HLD -Lipid panel noted -Started on Lipitor 40mg HS 4. DM -A1c 6.9% -Administrative Clerk consulted, Appreciate rec's, Maintain DM, low sodium, low fat diet. Lactaid milk. Provide further nutrition education -ISS BGMs ACHS 5. Troponemia -Likely due to demand ischemia -0.24 --> 0.43 --> 0.41 -Serial EKGs noted above 6. Transaminitis -Likely due to congestion, Improving 7. HypoMagnesemia -Repleted -Will continue to monitor 8. FEN -PO Fluids -Monitor for Hypomag -DM, low sodium, low fat diet 9. PPx -DVT: Lovenox daily Dispo: Tele-Inpatient Visit type - Emergency Visit Emergency Visit: Yes ED Registration Date: 05/09/18 Care time: The patient presented to the Emergency Department on the above date and was hospitalized for further evaluation of their emergent condition. - New Patient This patient is new to me today: No - Critical Care Critical Care patient: No - Discharge Referral Referred to [facility] No
[2018-05-10] MEDS ORDERED: ATORVASTATIN CA 40 MG TABLET (FP) PO SCH (22:00)
[2018-05-11] MEDS: FUROSEMIDE 40 MG/4 ML INJECTABLE VIAL IVPUSH SCH (05:55)
[2018-05-11] MEDS: INSULIN SLIDING SCALE (NOVOLOG) 1 VIAL SQ SCH ×3 (06:03→17:19)
--- NOTE | 2018-05-11 08:08 | PN ---
Teaching Attending Note Name of Resident: Margarette Reyes ATTENDING PHYSICIAN STATEMENT I saw and evaluated the patient. I reviewed the resident's note and discussed the case with the resident. I agree with the resident's findings and plan as documented with exceptions below. SUBJECTIVE: Patient seen and examined. breathing improved, ambulating well, no complaints. OBJECTIVE: Vital Signs Period Temp Pulse Resp BP Sys/Granda Pulse Ox Last 24 Hr 97.3 F-98.1 F 55-63 16-20 97-142/50-90 99-100 Intake & Output 05/08/18 05/09/18 05/10/18 05/11/18 23:59 23:59 23:59 23:59 Intake Total 310 680 250 Output Total 1000 Balance 310 -320 250 Weight 180 lb 182 lb 189 lb 6.4 oz General; sitting in chair in no acute distress Chest: improved air entry, no rales or wheezing Neck; soft, supple, no JVD noted Abdomen: soft, obese, NT extremities: trace pedal edema, improved Active Medications Atorvastatin Calcium (Lipitor -) 40 mg PO HS [facility] Last Admin: 05/10/18 22:54 Dose: 40 mg Carvedilol (Coreg -) 6.25 mg PO BID [facility] Last Admin: 05/10/18 22:53 Dose: 6.25 mg Enoxaparin Sodium (Lovenox -) 40 mg SQ DAILY [facility] Last Admin: 05/10/18 11:09 Dose: 40 mg Furosemide (Lasix Injection -) 40 mg IVPUSH BID@0600,1400 [facility] Last Admin: 05/11/18 05:55 Dose: 40 mg Insulin Aspart (Novolog Vial Sliding Scale -) 1 vial SQ [facility]; Protocol Last Admin: 05/11/18 06:03 Dose: Not Given Valsartan (Diovan -) 320 mg PO DAILY [facility] Last Admin: 05/10/18 11:09 Dose: 320 mg Laboratory Results - last 24 hr 05/10/18 05/10/18 05/10/18 05:30 11:53 16:21 POC Glucometer 129 122 Hemoglobin A1c % 6.9 H 05/10/18 05/11/18 22:56 05:58 POC Glucometer 103 116 Hemoglobin A1c % ASSESSMENT AND PLAN: 78 yof with PMHx of HTN, admitted with dyspnea -Acute hypoxic/hypercapneic respiratory failure, likely acute diastolic +/- systolic heart failure exacerbation -Hypertensive urgency -Elevated Troponin I, suspect demand induced from above -Abnormal LFTs, likely passive hepatic congestion, improved -Hyperlipidemia -Newly diagnosed DM -Obesity Plan: Oxygenating well. lasix 40 mg daily wit outpatient renal function and weight monitoring Home BP monitoring No home oxygen needs noted. Cardiology input noted 2d echo results reviewed Outpatient follow up for stress test. Started on statin, outpatient LFTs monitoring. Diabetic diet, home Blood glucose monitoring and outpatient PCP follow up. BLood sugars stable in house on diabetic diet. hold off on medications. DVTPX heparin Dispo d/c home today with outpatient cardiology follow up. Plan discussed with patient in detail, all questions answered.
[2018-05-11] MEDS: VALSARTAN 160 MG TABLET (UD) PO SCH (09:44)
[2018-05-11] MEDS: CARVEDILOL 6.25 MG TABLET (FP) PO SCH (09:44)
[2018-05-11] MEDS: ENOXAPARIN NA (PORCINE) 40 MG/0.4 ML DISP.SYRIN SQ SCH (09:44)
--- NOTE | 2018-05-11 12:16 | PN ---
Progress Note, Physician History of Present Illness: SOB, chest tightness, orthopnea and wheezing resolved with diuresis and BP control. - Current Medication List Current Medications: Active Medications Atorvastatin Calcium (Lipitor -) 40 mg PO HS [facility] Last Admin: 05/10/18 22:54 Dose: 40 mg Carvedilol (Coreg -) 6.25 mg PO BID [facility] Last Admin: 05/11/18 09:44 Dose: 6.25 mg Enoxaparin Sodium (Lovenox -) 40 mg SQ DAILY [facility] Last Admin: 05/11/18 09:44 Dose: 40 mg Furosemide (Lasix -) 40 mg PO DAILY [facility] Insulin Aspart (Novolog Vial Sliding Scale -) 1 vial SQ ACHS [facility]; Protocol Last Admin: 05/11/18 11:54 Dose: Not Given Valsartan (Diovan -) 320 mg PO DAILY [facility] Last Admin: 05/11/18 09:44 Dose: 320 mg - Objective Vital Signs: Vital Signs Temperature 97.4 F L 05/11/18 10:00 Pulse Rate 88 05/11/18 11:45 Respiratory Rate 18 05/11/18 10:00 Blood Pressure 137/78 05/11/18 10:00 O2 Sat by Pulse Oximetry (%) 92 L 05/11/18 11:45 Constitutional: Yes: No Distress, Calm Neck: Yes: Supple Cardiovascular: Yes: Regular Rate and Rhythm Respiratory: Yes: Regular, CTA Bilaterally Gastrointestinal: Yes: Normal Bowel Sounds, Soft Edema: No Labs: CBC, BMP 05/10/18 05:30 05/10/18 05:30 INR, PTT INR 1.10 (0.83-1.09) H 05/10/18 05:30 Problem List - Problems (1) Hypertensive hypertrophic cardiomyopathy, with heart failure Code(s): I11.0 - HYPERTENSIVE HEART DISEASE WITH HEART FAILURE; I42.2 - OTHER HYPERTROPHIC CARDIOMYOPATHY (2) CHF (congestive heart failure) Code(s): I50.9 - HEART FAILURE, UNSPECIFIED Qualifiers: Heart failure type: unspecified Heart failure chronicity: acute Qualified Code(s): I50.9 - Heart failure, unspecified (3) Acute on chronic respiratory failure with hypoxia and hypercapnia Code(s): J96.21 - ACUTE AND CHRONIC RESPIRATORY FAILURE WITH HYPOXIA; J96.22 - ACUTE AND CHRONIC RESPIRATORY FAILURE WITH HYPERCAPNIA (4) Subendocardial ischemia Code(s): I24.8 - OTHER FORMS OF ACUTE ISCHEMIC HEART DISEASE Assessment/Plan 05/10/2018 Echo: Normal LV size and fxn tr MR, TR 1. Acute hypercapneic and hypoxemic respiratory failure resolved 2. Acute on chronic diastolic heart failure resolved 3. Hypertensive emergency resolved 4. Subendocardial ischemia 5. Abnl LFTs suspect hepatic congestion improved 6. CKD P:1. Oral diuresis with monitor diuretic response, renal function and electrolytes, 2. Continue Diovan 320 qd, carvedilol 6.25 bid, Lipitor 40 qhs 3. D/c planning with f/u in office 4. Pharmacologic stress testing to r/o ischemia as outpatient
--- NOTE | 2018-05-11 17:06 | DS ---
Physical Exam: SUBJECTIVE: Patient seen and examined this morning at bedside. No New complaints. No overnight events as per nursing. Denies fevers, chills, chest pain, SOB, nausea, vomiting, diarrhea, constipation. OBJECTIVE: Vital Signs Period Temp Pulse Resp BP Sys/Granda Pulse Ox Last 24 Hr 97.3 F-97.9 F 55-88 16-20 108-142/50-90 92-99 PHYSICAL EXAM GENERAL: The patient is awake, alert, and fully oriented, in no acute distress. HEAD: Normal with no signs of trauma. EYES: PERRL, extraocular movements intact, sclera anicteric, conjunctiva clear. ENT: Ears normal, nares patent, oropharynx clear without exudates, moist mucous membranes. NECK: Trachea midline, full range of motion, supple. LUNGS: Breath sounds equal, clear to auscultation bilaterally, no wheezes, no crackles, no accessory muscle use. HEART: Regular rate and rhythm, S1, S2 without murmur, rub or gallop. ABDOMEN: Soft, nontender, nondistended, normoactive bowel sounds, no guarding, no rebound, no hepatosplenomegaly, no masses. EXTREMITIES: 2+ pulses, warm, well-perfused, no edema. NEUROLOGICAL: Cranial nerves II through XII grossly intact. Normal speech, gait not observed. PSYCH: Normal mood, normal affect. SKIN: Warm, dry, normal turgor, no rashes or lesions noted. LABS Laboratory Last Values WBC 8.5 K/mm3 (4.0-10.0) 05/10/18 05:30 RBC 4.24 M/mm3 (3.60-5.2) 05/10/18 05:30 Hgb 11.7 GM/dL (10.7-15.3) 05/10/18 05:30 Hct 36.7 % (32.4-45.2) 05/10/18 05:30 MCV 86.6 fl (80-96) 05/10/18 05:30 MCH 27.6 pg (25.7-33.7) 05/10/18 05:30 MCHC 31.9 g/dl (32.0-36.0) L 05/10/18 05:30 RDW 14.8 % (11.6-15.6) 05/10/18 05:30 Plt Count 209 K/MM3 (134-434) 05/10/18 05:30 MPV 10.1 fl (7.5-11.1) 05/10/18 05:30 Absolute Neuts (auto) 6.5 K/mm3 (1.5-8.0) 05/10/18 05:30 Neutrophils % 76.2 % (42.8-82.8) 05/10/18 05:30 Lymphocytes % 16.9 % (8-40) D 05/10/18 05:30 Monocytes % 6.7 % (3.8-10.2) 05/10/18 05:30 Eosinophils % 0.0 % (0-4.5) D 05/10/18 05:30 Basophils % 0.2 % (0-2.0) 05/10/18 05:30 Nucleated RBC % 0 % (0-0) 05/10/18 05:30 PT with INR 13.00 SEC (9.7-13.0) 05/10/18 05:30 INR 1.10 (0.83-1.09) H 05/10/18 05:30 PTT (Actin FS) 29.4 SECONDS (25.2-36.5) 05/09/18 09:58 VBG pH 7.28 (7.32-7.42) L 05/09/18 09:58 POC VBG pCO2 62.3 mmHg (38-52) H* 05/09/18 09:58 POC VBG pO2 22.8 mmHg (28-48) L 05/09/18 09:58 Mixed VBG HCO3 28.0 meq/L (19-25) H 05/09/18 09:58 Sodium 140 mmol/L (136-145) 05/10/18 05:30 Potassium 4.0 mmol/L (3.5-5.1) 05/10/18 05:30 Chloride 104 mmol/L (98-107) 05/10/18 05:30 Carbon Dioxide 28 mmol/L (21-32) 05/10/18 05:30 Anion Gap 9 MMOL/L (8-16) 05/10/18 05:30 BUN 22 mg/dL (7-18) H 05/10/18 05:30 Creatinine 1.0 mg/dL (0.55-1.3) 05/10/18 05:30 Creat Clearance w eGFR 53.48 (>60) 05/10/18 05:30 POC Glucometer 103 UNITS (80-120) 05/11/18 17:12 Random Glucose 98 mg/dL (74-106) 05/10/18 05:30 Hemoglobin A1c % 6.9 % (4.2-6.3) H 05/10/18 05:30 Calcium 8.9 mg/dL (8.5-10.1) 05/10/18 05:30 Phosphorus 3.9 mg/dL (2.5-4.9) 05/10/18 05:30 Magnesium 2.0 mg/dL (1.8-2.4) 05/10/18 05:30 Total Bilirubin 0.4 mg/dL (0.2-1) 05/10/18 05:30 Direct Bilirubin 0.1 mg/dL (0.0-0.2) 05/10/18 05:30 AST 33 U/L (15-37) 05/10/18 05:30 ALT 80 U/L (13-61) H 05/10/18 05:30 Alkaline Phosphatase 91 U/L (45-117) 05/10/18 05:30 Creatine Kinase 370 IU/L (26-192) H 05/10/18 05:30 Creatine Kinase Index 1.4 % (0.0-5.0) 05/10/18 05:30 CK-MB (CK-2) 5.5 ng/mL (0.5-3.6) H 05/10/18 05:30 Troponin I 0.41 ng/ml (0.00-0.05) H 05/10/18 05:30 B-Natriuretic Peptide 821.4 pg/ml (5-450) H 05/09/18 09:58 Total Protein 8.0 g/dl (6.4-8.2) 05/10/18 05:30 Albumin 3.7 g/dl (3.4-5.0) 05/10/18 05:30 Triglycerides 39 mg/dL (0-150) 05/10/18 05:30 Cholesterol 237 mg/dL (50-200) H 05/10/18 05:30 Total LDL Cholesterol 121 mg/dL (5-100) H 05/10/18 05:30 HDL Cholesterol 107 mg/dL (40-60) H 05/10/18 05:30 TSH 1.28 uIU/ml (0.358-3.74) 05/10/18 05:30 Urine Color Cancelled 05/09/18 11:01 Urine Appearance Cancelled 05/09/18 11:01 Urine pH Cancelled 05/09/18 11:01 Ur Specific [place] Cancelled 05/09/18 11:01 Urine Protein Cancelled 05/09/18 11:01 Urine Glucose (UA) Cancelled 05/09/18 11:01 Urine Ketones Cancelled 05/09/18 11:01 Urine Blood Cancelled 05/09/18 11:01 Urine Nitrite Cancelled 05/09/18 11:01 Urine Bilirubin Cancelled 05/09/18 11:01 Urine Urobilinogen Cancelled 05/09/18 11:01 Ur Leukocyte Esterase Cancelled 05/09/18 11:01 IMAGING: -CXR: No evidence of widening of the superior mediastinum. The heart is borderline enlarged. No pneumothorax is seen. Increased lung markings are noted in the region of the right cardiophrenic angle without effacement of heart border or diaphragm. Infectious process cannot be entirely excluded. Questionable right pleural effusion. -Chest CT without Contrast: Small bilateral pleural effusions, chronic lung changes and mild bibasilar atelectasis. No evidence of pneumonia or acute pathology within the chest. -EKG (on 05/09 @ 09:28): NORMAL SINUS RHYTHM, NORMAL ECG, VR 61, QTc 467 -EKG (on 05/09 @ 19:48): NORMAL SINUS RHYTHM, NORMAL ECG, VR 75, QTc 484 -ECHO: LV Size, thickness and function are normal. EF = 70%, Trace MR and TR. HOSPITAL COURSE: Date of Admission:05/09/18 Date of Discharge: 05/11/18 78 y/o F with PMHx of HTN was BIBEMS for SOB and was admitted for Hypertensive urgency. Patient was given Lasix and Cardiology was consulted. An Echo, Chest CT and additional imaging are noted above. Patient was started on Coreg and Valsartan and her BP Improved. Her Troponins peaked and trended down and serial EKGs noted above. Patient lipid panel revealed elevated Total Cholesterol and LDL for which she was started on Lipitor. Her A1c was elevated at 6.9% for which she was placed on ISS during her stay and a Business Objects Developer was consulted. Her Transaminitis and Hypomagnesemia resolved. Patient was discharged home with strict instructions to follow up with cardiology as she may need to have an outpatient stress test done. Minutes to complete discharge: 45 Discharge Summary Reason For Visit: CONGESTIVE HEART FAILURE Current Active Problems Acute on chronic respiratory failure with hypoxia and hypercapnia (Acute) CHF (congestive heart failure) (Acute) Hypertensive hypertrophic cardiomyopathy, with heart failure (Acute) Subendocardial ischemia (Acute) Condition: Improved - Instructions Diet, Activity, Other Instructions: You presented to the hospital with shortness of breath. You had an ultrasound of your heart (Echocardiogram) done. You were evaluated by a ocular care aide during your stay. It is very important that you follow up with your ocular care aide. Please call Dr. Gray's office to schedule follow up as you will likely need to have a stress test done. MEDICATION CHANGES: Start lasix (water pill) 40 mg daily ASA 81 mg daily Lipitor 40 mg daily (cholesterol medication) Coreg 6.25 mg twice daily (for heart) Stop your old BP medication Valsartan/HCTZ combination. DIET/ACTIVITY INSTRUCTIONS: -While on lasix, it is very important to monitor your weights and have your kidney function monitored with your doctor. Recommend Daily weights and notify doctor if weight gain > 3 lbs in 2 days. -Your blood pressure was very high on arrival. You were started on Coreg 6.25mg twice a day and Valsartan 320mg daily. Please continue these medications as prescribed. -Your cholesterol was elevated on blood work. You were started on Lipitor 40mg to be taken everynight. If you notice severe muscle aches, pains, jaundice , stop the lipitor and call your doctor. -One of your blood tests was elevated suggestive of Diabetes. Continue diabetic diet. Please monitor blood sugar at Home and maintain a diary. Please Notify doctor if < 75 or persistently > 140 noted. Continue diabetic diet as directed. Follow up with doctor to see if you need to be placed on diabetes medication -It is important to maintain low salt/low cholesterol diabetic diet. FOLLOW UPS: Primary care physician in [address] Sandoval in 1-2 weeks (information provided) FOLLOW UP BLOOD WORK; BMP (Basic metabolic panel) in 1 week with your doctor. Please call 911 or return to the ER if you have any signs or symptoms of chest pain, shortness of breath, uncontrollable fever, chills, nausea, vomiting, numbness, tingling, or weakness in any part of your body, changes in vision, or slurred speech. Please return to the ER if symptoms persist, worsen, or new symptoms arise. Referrals: Charles Yanez MD [Primary Care Provider] - Flakito Gray MD [Staff Physician] - 1 Week Disposition: HOME - Home Medications Comprehensive Discharge Medication List: Ambulatory Orders Aspirin [ASA -] 81 mg PO DAILY #30 tab.chew 05/11/18 Atorvastatin Ca [Lipitor] 40 mg PO HS #30 tablet 05/11/18 Carvedilol [Coreg -] 6.25 mg PO BID #60 tablet 05/11/18 Furosemide [Lasix] 40 mg PO DAILY #30 tablet 05/11/18 Valsartan [Diovan] 320 mg PO DAILY #60 tablet 05/11/18 This patient is new to me today: No Emergency Visit: Yes ED Registration Date: 05/09/18 Care time: The patient presented to the Emergency Department on the above date and was hospitalized for further evaluation of their emergent condition. Critical Care patient: No - Discharge Referral Referred to [facility] No
[2018-05-11 19:04] VITALS: BP 137/76; PULSE 58; TEMP 97.3
[2018-05-12] MEDS ORDERED: FUROSEMIDE 40 MG TABLET (FP) PO SCH (10:00)
[2018-05-12 17:36] LABS: HEP.C VIRUS AB 0.1 s/co ratio (0.0-0.9)
== END 2018-05-11 19:53 | disposition home or self-care (01) | DRG 291 ==
LOC: JER 08:38 → JERBED 11:47 → J4W 15:58
PROVIDERS: ADMIT Hospitalist; ATTEND Hospitalist
PROC: 5A09357 Assistance with Respiratory Ventilation, Less than 24 Consecutive Hours, Continuous Positive Airway Pressure (ICD-10-PCS; principal; 2018-05-09)
DX: I13.0 Hypertensive heart and chronic kidney disease with heart failure and stage 1 through stage 4 chronic kidney disease, or unspecified chronic kidney disease (principal); J96.21 Acute and chronic respiratory failure with hypoxia; I50.33 Acute on chronic diastolic (congestive) heart failure; J96.22 Acute and chronic respiratory failure with hypercapnia; I24.8 Other forms of acute ischemic heart disease; J98.11 Atelectasis; I16.0 Hypertensive urgency; R74.0 Nonspecific elevation of levels of transaminase and lactic acid dehydrogenase [LDH]; E83.42 Hypomagnesemia; E78.5 Hyperlipidemia, unspecified; E66.9 Obesity, unspecified; Z68.34 Body mass index [BMI] 34.0-34.9, adult; N18.9 Chronic kidney disease, unspecified; I25.119 Atherosclerotic heart disease of native coronary artery with unspecified angina pectoris; I42.2 Other hypertrophic cardiomyopathy; E11.9 Type 2 diabetes mellitus without complications
CPT/HCPCS: 36415; 71045-TC-FY; 71250-TC; 80048; 80053; 80061; 80074; 80076; 82550; 82553; 82803; 82962; 83036; 83721; 83735; 83880; 84100; 84443; 84484; 85025; 85610; 85730; 90688; 93005; 93010; 93306-TC; 94761; 99283-25; G0008

== ENCOUNTER 2018-10-16 09:35 | Emergency (ER) | payer OTHER ==
[2018-10-16 09:43] VITALS: TEMP 97.6; BMI 32.9
--- NOTE | 2018-10-16 10:25 | PDOC ---
Attending Attestation - HPI HPI: This patient is a 78 year old female with PMHx of HTN, who presents with lip swelling s/p allergic reaction to her new bp meds. Patient states that approx 1 week ago she was started on Lisinopril. She noticed a dry cough soon after taking the medication and developed right sided lip swelling Denies any shortness of breath, difficulty breathing, difficulty swallowing. PCP: Beau - Physicial Exam PE: GENERAL: Awake, alert, and fully oriented, in no acute distress HEAD: No signs of trauma EYES: PERRLA, EOMI, sclera anicteric, conjunctiva clear ENT: No tongue swelling, uvula midline, tolerating secretions, no stridor, no posterior uvula swelling. Auricles normal inspection, hearing grossly normal, nares patent. NECK: Normal ROM, supple, no lymphadenopathy, JVD, or masses LUNGS: Breath sounds equal, clear to auscultation bilaterally. No wheezes, and no crackles HEART: Regular rate and rhythm, normal S1 and S2, no murmurs, rubs or gallops ABDOMEN: Soft, nontender, normoactive bowel sounds. No guarding, no rebound. No masses EXTREMITIES: Normal range of motion, trace edema in lower extremities (chronic) . No clubbing or cyanosis. No cords, erythema, or tenderness NEUROLOGICAL: Cranial nerves II through XII grossly intact. Normal speech, Ambulatory with steady gait. SKIN: Mild angioedema to right lateral upper and lower lip. <Renetta Pina - Last Filed: 10/16/18 11:17> - Resident Resident Name: Christine Arias - ED Attending Attestation I have performed the following: I have examined & evaluated the patient, The case was reviewed & discussed with the resident, I agree w/resident's findings & plan, Exceptions are as noted - Medical Decision Making 10/16/18 10:25 I, Dr. Soledad Chisholm, DO, attest that this document has been prepared under my direction and personally reviewed by me in its entirety. I further attest, that it accurately reflects all work, treatment, procedures and medical decision -making performed by me. 10/16/18 11:19 a/p: 78yo female with recently started lisinopril/hctz with dry cough x 1 week - since starting the med and lip swelling today -suspect angioedema and cough from lisinopril -no airway involvement -lip swelling, but no tongue or posterior pharynx swelling -pt is nontoxic in appearance -mild lip swelling to R lateral upper and lower lip -tolerating secretions/speaking in clear sentences, no difficulty breathing, no stridor, wheezing -medicated for poss allergic reaction -will monitor and stop lisinopril -resident discussed the case with Dr. Yanez who will see the patient tomorrow, ok to dc with hctz only -will document allergy to lisinopril 10/16/18 12:38 re-eval: pt feeling better, angioedema improved no airway involvement pt asking to go home will send home with steroids, pepcid, hctz 10/16/18 12:39 pt will follow up with Dr. Yanez tomorrow 10/16/18 12:39 discussed all reasons to return to the ED, son at the bedside who understands all instructions <Soledad Chisholm - Last Filed: 10/16/18 12:40> Attestations - Attestations 10/16/18 11:16 Documentation prepared by Renetta Pina, acting as nuclear medicine medical director for Soledad Chisholm DO. <Renetta Pina - Last Filed: 10/16/18 11:17>
[2018-10-16] MEDS ORDERED: FAMOTIDINE 20 MG/50 ML IVPB 20 MG/50 ML MG IVPB ONE ×2 (10:44→11:16)
[2018-10-16] MEDS ORDERED: methylPREDNISolone NA SUCC 125 MG/2 ML VIAL IVPUSH ONE (10:45)
--- NOTE | 2018-10-16 10:48 | PDOC ---
History of Present Illness - General Chief Complaint: Edema Stated Complaint: SWOLLEN LIP Time Seen by Provider: 10/16/18 10:25 - History of Present Illness Initial Comments: Betty Mendoza is a 78yo woman with a PMH of HTN, DM (diet controlled) who presents with swelling to the right lips and cheek that started within the last 3 hours. She states that she was recently started on lisinopril one week ago, and her doctor warned her that swelling can be a side effect. She is not sure exactly when the swelling started, but she states that it was not present when she woke up. Ms Mendoza reports that she was able to eat breakfast without difficulty. She denies any swelling to the inside of her mouth, tongue, or throat. She denies difficulty breathing. recently started on lisinopril, who presents with swelling of the right upper lip and left cheek that is most likely angioedema. She has no involvement of the tongue or throat, is breathing normally, has a normal voice, and has no difficulty swallowing. She denies any other recent symptoms other than a dry cough for the past week. Past History - Past Medical History Allergies/Adverse Reactions: Allergies Allergy/AdvReac Type Severity Reaction Status Date / Time JES Inhibitors Allergy Verified 10/16/18 11:29 No Known Drug Allergies Allergy Verified 10/16/18 09:43 lactose AdvReac Swelling Verified 05/10/18 19:06 Home Medications: Ambulatory Orders Aspirin [ASA -] 81 mg PO DAILY #30 tab.chew 05/11/18 Atorvastatin Ca [Lipitor] 40 mg PO HS #30 tablet 05/11/18 Carvedilol [Coreg -] 6.25 mg PO BID #60 tablet 05/11/18 Famotidine [Acid Controller] 20 mg PO DAILY #7 tablet 10/16/18 Hydrochlorothiazide 12.5 mg PO DAILY #10 tablet 10/16/18 predniSONE [Deltasone -] 40 mg PO DAILY 4 Days #8 tablet 10/16/18 Anemia: No Asthma: No Cancer: No Cardiac Disorders: No CVA: No COPD: No CHF: No Dementia: No Diabetes: No GI Disorders: No HTN: Yes Hypercholesterolemia: No Liver Disease: No Seizures: No Thyroid Disease: No - Surgical History Abdominal Surgery: Yes Appendectomy: No Cardiac Surgery: No Cholecystectomy: No Lung Surgery: No Neurologic Surgery: No Orthopedic Surgery: No - Suicide/Smoking/Psychosocial Hx Smoking History: Never smoked Have you smoked in the past 12 months: No Hx Alcohol Use: No Drug/Substance Use Hx: No Substance Use Type: None Hx Substance Use Treatment: No Review of Systems - Review of Systems Comments:: General: No fevers, no chills, no weight or appetite change, no malaise HEENT: No changes in vision, no changes in hearing, no congestion, no sore throat. Lip swelling. See HPI CV: No chest pain, no palpitations, no LE edema Pulm: No SOB, + dry cough, no wheezing GI: No nausea or vomiting, no change in bowel habits, no melena : No frequency, no urgency, no dysuria Musc: No back pain, no joint swelling, no recent injury Skin: No rash, no lesions, no erythema Endo: No excessive thirst, no heat/cold intolerance Heme: No unusual bruising or bleeding, no swollen glands Neuro: No syncope, no numbness/tingling, no focal weakness Vasc: No claudication Psych: No recent change in mood, no SI or HI *Physical Exam - Vital Signs Last Vital Signs Temp Pulse Resp BP Pulse Ox 97.6 F 58 L 18 142/48 L 97 10/16/18 09:40 10/16/18 09:40 10/16/18 09:40 10/16/18 09:40 10/16/18 09:40 - Physical Exam Comments: General: Comfortable, no acute distress HEENT: PERRL, EOMI, MMM, voice normal, normal neck ROM, no LAD. Nontender swelling to right upper lip, right cheek around mouth. No tonsillar, uvular, pharyngeal swelling Cards: RRR, no murmur appreciated Pulm: Comfortable on room air, clear to auscultation bilaterally Abd: Soft, nontender, nondistended Ext: Atraumatic. No LE edema. Moves all extremities Vasc: Extremities WWP. Skin: Normal color, no rashes or lesions Neuro: A&Ox3, CN grossly intact, normal speech, motor/sensory grossly intact and symmetric Psych: Mood appropriate to situation Medical Decision Making - Medical Decision Making 10/16/18 10:46 Betty Mendoza is a 78yo woman with a PMH of HTN, DM (diet controlled), recently started on lisinopril, who presents with swelling of the right upper lip and left cheek that is most likely angioedema. She has no involvement of the tongue or throat, is breathing normally, has a normal voice, and has no difficulty swallowing. - IV diphenhydramine, IV famotidine, IV methylprednisolone ordered for symptoms - Will monitor symptoms 10/16/18 11:21 - IV placed by me; 22g in R hand - Spoke to Dr Yanez, pt's PMD, to update her regarding Ms Silva's symptoms. She will follow up within the next few days in her office. - Advised Ms Mendoza that she should be monitored in the ED to ensure that her symptoms do not worsen as they started recetly. She agrees. Will reassess. 10/16/18 12:38 - Feels improved, no additional swelling - Will d/c home with 4 additional days of steroids, HCTZ prescription Discussed with Dr Chisholm. 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 This is most likely due to your recently started lisinopril. You will need to stop taking this medication at home. Home Care and Follow Up: - STOP taking your home lisinopril. - Make sure you tell all doctors in the future that you cannot take JES inhibitors - You have been prescribed several medications for home. 1. Prednisone: Take daily for 4 days starting tomorrow 2. Famotidine: Take daily for one week starting tomorrow 3. Hydrochlorothiazide (Diuretic/water pill): Take daily until seen by your regular doctor - Call your regular doctor tomorrow to schedule a follow up appointment as soon as possible, ideally within the next 1-2 days - Seek immediate medical care if you have worsening of your symptoms, difficulty breathing, difficulty swallowing, change in your voice, or swelling in your mouth or throat. - Post Discharge Activity
[2018-10-16] MEDS ORDERED: methylPREDNISolone NA SUCC 125 MG/2 ML VIAL ONE (11:16)
[2018-10-16 13:30] VITALS: BP 146/75; PULSE 55
== END 2018-10-16 13:00 | disposition home or self-care (01) ==
LOC: JER 09:35
PROC: 3E033GC Introduction of Other Therapeutic Substance into Peripheral Vein, Percutaneous Approach (ICD-10-PCS; principal; 2018-10-16)
PROC: 3E033GC Introduction of Other Therapeutic Substance into Peripheral Vein, Percutaneous Approach (ICD-10-PCS; 2018-10-16)
PROC: 3E0333Z Introduction of Anti-inflammatory into Peripheral Vein, Percutaneous Approach (ICD-10-PCS; 2018-10-16)
DX: T78.3XXA Angioneurotic edema, initial encounter (principal); T46.4X5A Adverse effect of angiotensin-converting-enzyme inhibitors, initial encounter; Y92.018 Other place in single-family (private) house as the place of occurrence of the external cause; I10 Essential (primary) hypertension; E11.9 Type 2 diabetes mellitus without complications
CPT/HCPCS: 99282-25

== ENCOUNTER 2023-03-15 20:32 | Inpatient (IN) | payer OTHER ==
[2023-03-15 20:54] VITALS: BMI 31.1
[2023-03-15] MEDS ORDERED: guaiFENesin/CODEINE 10 ML UNIT-DOSE CUPS PO ONE (21:30)
[2023-03-15] MEDS ORDERED: BENZOCAINE/MENTH/CETYLPYRD CL 1 EACH LOZENGE MM PRN (21:31)
[2023-03-15] MEDS ORDERED: guaiFENesin/CODEINE 10 ML UNIT-DOSE CUPS ONE (22:14)
[2023-03-15] MEDS ORDERED: BENZOCAINE/MENTH/CETYLPYRD CL 1 EACH LOZENGE MM ONE (22:15)
[2023-03-15 22:22] LABS: BASO % 0.5 % (0-2.0); EOS % 4.5 % (0-4.5); HEMATOCRIT 33.9 % (32.4-45.2); HEMOGLOBIN 11.2 GM/dL (10.7-15.3); LYMPH % 55.4 % (8-40); MCH 27.6 pg (25.7-33.7); MCHC 33.1 g/dl (32.0-36.0); MEAN CELL VOLUME 83.5 fl (80-96); MEAN PLT VOLUME 9.8 fl (7.5-11.1); MONO % 10.7 % (3.8-10.2); NEUT % 28.9 % (42.8-82.8); PLATELET COUNT 169 10^3/uL (134-434); RBC 4.06 M/mm3 (3.60-5.2); RDW 15.1 % (11.6-15.6); WHITE BLOOD COUNT 4.7 K/mm3 (4.0-10.0)
[2023-03-15 22:58] LABS: POTASSIUM 4.8 mmol/L (3.5-5.1)
[2023-03-15 23:00] LABS: ALBUMIN 3.4 g/dl (3.4-5.0); CALCIUM 9.3 mg/dL (8.5-10.1)
[2023-03-15 23:01] LABS: BLOOD UREA NITROGEN 19.5 mg/dL (7-18)
[2023-03-15 23:04] LABS: CREATININE 1.3 mg/dL (0.55-1.3)
[2023-03-15 23:05] LABS: BILIRUBIN,TOTAL 0.4 mg/dL (0.2-1); TOT PROT 7.8 g/dl (6.4-8.2)
[2023-03-16] MEDS ORDERED: REMDESIVIR 200 MG in SODIUM CHLORIDE 250 ML IVPB ONE ×2 (00:31→02:30)
[2023-03-16] MEDS ORDERED: ENOXAPARIN NA (PORCINE) 40 MG/0.4 ML DISP.SYRIN SQ ONE ×2 (04:50→05:28)
[2023-03-16] MEDS ORDERED: hydrALAZINE HCL 20 MG/ML VIAL IVPUSH ONE (05:22)
[2023-03-16] MEDS ORDERED: hydrALAZINE HCL 20 MG/ML VIAL ONE (05:28)
[2023-03-16 06:17] LABS: BASO % 0.4 % (0-2.0); EOS % 3.6 % (0-4.5); HEMATOCRIT 32.3 % (32.4-45.2); HEMOGLOBIN 10.4 GM/dL (10.7-15.3); LYMPH % 46.3 % (8-40); MCH 27.5 pg (25.7-33.7); MCHC 32.3 g/dl (32.0-36.0); MEAN CELL VOLUME 85.2 fl (80-96); MEAN PLT VOLUME 9.1 fl (7.5-11.1); MONO % 10.4 % (3.8-10.2); NEUT % 39.3 % (42.8-82.8); PLATELET COUNT 162 10^3/uL (134-434); RBC 3.79 M/mm3 (3.60-5.2); RDW 14.6 % (11.6-15.6); WHITE BLOOD COUNT 4.6 K/mm3 (4.0-10.0)
[2023-03-16 06:35] LABS: POTASSIUM 3.8 mmol/L (3.5-5.1)
[2023-03-16 06:38] LABS: CALCIUM 8.7 mg/dL (8.5-10.1)
[2023-03-16 06:39] LABS: ALBUMIN 3.2 g/dl (3.4-5.0); BLOOD UREA NITROGEN 20.3 mg/dL (7-18)
[2023-03-16 06:43] LABS: BILIRUBIN,TOTAL 0.4 mg/dL (0.2-1); CREATININE 0.9 mg/dL (0.55-1.3); TOT PROT 7.1 g/dl (6.4-8.2)
[2023-03-16] MEDS ORDERED: FAMOTIDINE 20 MG TABLET ONE (07:56)
[2023-03-16] MEDS ORDERED: ASPIRIN 81 MG CHEWABLE TABLETS ONE (07:56)
[2023-03-16] MEDS ORDERED: CARVEDILOL 6.25 MG TABLET (FP) ONE ×2 (07:56→22:07)
[2023-03-16] MEDS: CARVEDILOL 6.25 MG TABLET (FP) PO SCH ×3 (10:16→22:11)
[2023-03-16] MEDS: FAMOTIDINE 20 MG TABLET PO SCH (10:16)
[2023-03-16] MEDS: ASPIRIN 81 MG CHEWABLE TABLETS PO SCH (10:16)
[2023-03-16] MEDS: HYDROCHLOROTHIAZIDE 12.5 MG CAPSULE (FP) PO SCH (10:16)
[2023-03-16] MEDS ORDERED: ATORVASTATIN CA 40 MG TABLET (FP) ONE (22:07)
[2023-03-16] MEDS: ATORVASTATIN CA 40 MG TABLET (FP) PO SCH (22:11)
[2023-03-16 22:19] LABS: EPI CELLS 12 /uL (0-25.1); HYALINE CASTS 0 /uL (0-3.1); PH,URINE 5.5 (5.0-8.0); URINE APPEARANCE CLEAR; URINE BACTERIA 42 /uL (0-1359); URINE BILIRUBIN NEGATIVE (NEGATIVE); URINE COLOR YELLOW; URINE GLUCOSE (UA) NEGATIVE (NEGATIVE); URINE KETONE NEGATIVE (NEGATIVE); URINE LEUK ESTERASE TRACE (NEGATIVE); URINE NITRITE NEGATIVE (NEGATIVE); URINE PROTEIN TRACE (NEGATIVE); URINE RBC 13 /uL (0-23.9); URINE WBC 22 /uL (0-25.8)
[2023-03-17] MEDS: HYDROCHLOROTHIAZIDE 12.5 MG CAPSULE (FP) PO SCH (10:21)
[2023-03-17] MEDS: ASPIRIN 81 MG CHEWABLE TABLETS PO SCH (10:21)
[2023-03-17] MEDS: FAMOTIDINE 20 MG TABLET PO SCH (10:21)
[2023-03-17] MEDS: CARVEDILOL 6.25 MG TABLET (FP) PO SCH ×2 (10:21→22:18)
[2023-03-17] MEDS: guaiFENesin/CODEINE 10 ML UNIT-DOSE CUPS PO PRN (10:21)
[2023-03-17] MEDS: ENOXAPARIN NA (PORCINE) 40 MG/0.4 ML DISP.SYRIN SQ SCH (12:46)
[2023-03-17] MEDS: ATORVASTATIN CA 40 MG TABLET (FP) PO SCH (22:18)
[2023-03-18] MEDS: guaiFENesin/CODEINE 10 ML UNIT-DOSE CUPS PO PRN ×2 (05:28→22:37)
[2023-03-18 06:56] LABS: BASO % 0.3 % (0-2.0); EOS % 3.8 % (0-4.5); HEMATOCRIT 31.9 % (32.4-45.2); HEMOGLOBIN 10.4 GM/dL (10.7-15.3); LYMPH % 43.4 % (8-40); MCH 27.7 pg (25.7-33.7); MCHC 32.5 g/dl (32.0-36.0); MEAN CELL VOLUME 85.1 fl (80-96); MONO % 6.5 % (3.8-10.2); PLATELET COUNT 160 10^3/uL (134-434); RBC 3.75 M/mm3 (3.60-5.2); RDW 14.8 % (11.6-15.6); WHITE BLOOD COUNT 4.4 K/mm3 (4.0-10.0)
[2023-03-18 07:09] LABS: POTASSIUM 3.5 mmol/L (3.5-5.1)
[2023-03-18 07:16] LABS: ALBUMIN 3.2 g/dl (3.4-5.0); BLOOD UREA NITROGEN 20.7 mg/dL (7-18); CALCIUM 8.7 mg/dL (8.5-10.1)
[2023-03-18 07:18] LABS: CREATININE 0.9 mg/dL (0.55-1.3)
[2023-03-18 07:20] LABS: BILIRUBIN,TOTAL 0.6 mg/dL (0.2-1); TOT PROT 7.1 g/dl (6.4-8.2)
[2023-03-18] MEDS: HYDROCHLOROTHIAZIDE 12.5 MG CAPSULE (FP) PO SCH (10:10)
[2023-03-18] MEDS: CARVEDILOL 6.25 MG TABLET (FP) PO SCH ×2 (10:10→21:51)
[2023-03-18] MEDS: ASPIRIN 81 MG CHEWABLE TABLETS PO SCH (10:10)
[2023-03-18] MEDS: ENOXAPARIN NA (PORCINE) 40 MG/0.4 ML DISP.SYRIN SQ SCH (10:10)
[2023-03-18] MEDS: FAMOTIDINE 20 MG TABLET PO SCH (10:10)
[2023-03-18] MEDS ORDERED: HYDROCHLOROTHIAZIDE 12.5 MG CAPSULE (FP) PO ONE (14:00)
[2023-03-18] MEDS: ATORVASTATIN CA 40 MG TABLET (FP) PO SCH (21:51)
[2023-03-19 07:13] LABS: BASO % 0.4 % (0-2.0); EOS % 3.9 % (0-4.5); HEMATOCRIT 31.8 % (32.4-45.2); HEMOGLOBIN 10.4 GM/dL (10.7-15.3); LYMPH % 42.8 % (8-40); MCH 27.9 pg (25.7-33.7); MCHC 32.8 g/dl (32.0-36.0); MEAN PLT VOLUME 9.6 fl (7.5-11.1); MONO % 11.5 % (3.8-10.2); NEUT % 41.4 % (42.8-82.8); PLATELET COUNT 172 10^3/uL (134-434); RBC 3.75 M/mm3 (3.60-5.2); RDW 14.7 % (11.6-15.6); WHITE BLOOD COUNT 4.8 K/mm3 (4.0-10.0)
[2023-03-19 07:16] LABS: INR 1.17 (0.83-1.09); PROTHROMBIN TIME (PATIENT) 13.6 SEC (9.7-13.0)
[2023-03-19 07:18] LABS: ACTIVATED PTT 30.7 SECONDS (25.2-36.5)
[2023-03-19 07:48] LABS: POTASSIUM 3.6 mmol/L (3.5-5.1)
[2023-03-19 07:50] LABS: ALBUMIN 3.2 g/dl (3.4-5.0); BLOOD UREA NITROGEN 24.6 mg/dL (7-18); CALCIUM 8.6 mg/dL (8.5-10.1); MAGNESIUM 1.7 mg/dL (1.8-2.4)
[2023-03-19 07:54] LABS: CREATININE 0.9 mg/dL (0.55-1.3)
[2023-03-19 07:55] LABS: BILIRUBIN,TOTAL 0.5 mg/dL (0.2-1); TOT PROT 7.1 g/dl (6.4-8.2)
[2023-03-19] MEDS ORDERED: HYDROCHLOROTHIAZIDE 25 MG TABLET (FP) PO SCH (10:00)
[2023-03-19] MEDS: ASPIRIN 81 MG CHEWABLE TABLETS PO SCH (10:55)
[2023-03-19] MEDS: FAMOTIDINE 20 MG TABLET PO SCH (10:55)
[2023-03-19] MEDS: CARVEDILOL 6.25 MG TABLET (FP) PO SCH (10:55)
[2023-03-19] MEDS: ENOXAPARIN NA (PORCINE) 40 MG/0.4 ML DISP.SYRIN SQ SCH (10:56)
[2023-03-19 13:11] VITALS: RESP 18
[2023-03-19 14:37] VITALS: BP 177/90; PULSE 56; TEMP 97.7
== END 2023-03-19 17:36 | disposition home or self-care (01) | DRG 177 ==
LOC: JERFT 20:32 → JERBED 03-16 01:44 → J4S 03-17 06:55
PROVIDERS: ADMIT Internal Medicine; ATTEND Internal Medicine
PROC: XW033E5 Introduction of Remdesivir Anti-infective into Peripheral Vein, Percutaneous Approach, New Technology Group 5 (ICD-10-PCS; principal; 2023-03-16)
DX: U07.1 COVID-19 (principal); I21.A1 Myocardial infarction type 2; I10 Essential (primary) hypertension; E78.5 Hyperlipidemia, unspecified
CPT/HCPCS: 0241U-QW; 36415; 71045-TC-FY; 80053; 80061; 81003; 83735; 84100; 84484; 85025; 85610; 85730; 93005; 93010; 93306-TC; 93308; 99285-25; C9399

== ENCOUNTER 2024-02-18 22:18 | Emergency (ER) | payer OTHER ==
[2024-02-18 22:35] VITALS: BP 164/75; PULSE 62; RESP 18; TEMP 97.8; BMI 30.1
[2024-02-18] MEDS ORDERED: LIDOCAINE 5% TOPICAL PATCH ONE (23:22)
[2024-02-18] MEDS ORDERED: ACETAMINOPHEN 325 MG TABLET (FP) ONE (23:22)
[2024-02-18] MEDS: LIDOCAINE 5% TOPICAL PATCH TP ONE (23:25)
[2024-02-18] MEDS: LIDOCAINE PATCH REMOVAL MC SCH (23:26)
[2024-02-18] MEDS: ACETAMINOPHEN 500 MG TABLET (FP) PO ONE (23:26)
== END 2024-02-19 00:22 | disposition home or self-care (01) ==
LOC: JER 22:18
DX: M54.2 Cervicalgia (principal)
CPT/HCPCS: 99283-25